=== PATIENT | male | born 1980 | race Caucasian/White ===

== ENCOUNTER 2018-10-16 11:19 | Outpatient (CLI) | payer BC ==
--- NOTE | 2018-10-16 13:39 | RAD ---
TWO VIEW CHEST SERIES: Indication: Tobacco abuse. FINDINGS: There is no consolidation, effusion, or pneumothorax. Cardiac silhouette is normal in size. Osseous s tructures are intact. IMPRESSION: No focal consolidation. POS: [facility]
== END 2018-10-16 11:20 | disposition home or self-care (01) ==
LOC: BICRAD 11:19
PROVIDERS: ATTEND Family Medicine
DX: Z72.0 Tobacco use (principal)
CPT/HCPCS: 36415; 71046; 80053; 80061; 81001; 84443; 85025